=== PATIENT | male | born 1950 ===

== ENCOUNTER 2019-09-02 11:30 | Inpatient (IN) | payer OTHER ==
[~2019-09-02] VITALS: Ht 177.8 cm; Wt 103.9 kg
[2019-09-02] MEDS ORDERED: COZAAR50 MG PO (12:34)
[2019-09-02] MEDS ORDERED: LIPITOR40 MG PO (12:35)
== END 2019-09-13 12:50 | disposition home or self-care (01) | DRG 708 ==
LOC: O/R 09-11 06:12 → SURH 09-11 06:12 → O/R 09-11 11:30 → SURH 09-11 11:30
PROVIDERS: ADMIT Urology
PROC: 07TC0ZZ Resection of Pelvis Lymphatic, Open Approach (ICD-10-PCS; 2019-09-11)
PROC: 0VT00ZZ Resection of Prostate, Open Approach (ICD-10-PCS; principal; 2019-09-11 07:00)
DX: C61 Malignant neoplasm of prostate (principal)